=== PATIENT | male | born 1980 | race Native Hawaiian/Other Pacific Islander ===

== ENCOUNTER 2018-09-11 16:31 | Emergency (ER) | payer OTHER ==
[~2018-09-11] VITALS: Ht 185.4 cm; Wt 102.1 kg
[2018-09-11] MEDS ORDERED: CELEXA40 MG PO (17:08)
[2018-09-11] MEDS ORDERED: LISI20TA11 PO (17:08)
[2018-09-11] MEDS ORDERED: ONDA4TAB3 PO (17:08)
[2018-09-11] MEDS ORDERED: HYDR10TA47A PO (17:09)
[2018-09-11] MEDS ORDERED: CLON1TAB18 PO (17:10)
[2018-09-11] MEDS ORDERED: [UNRECOGNIZED DRUG - OTHER] PO (17:12)
[2018-09-11 18:33] LABS: PLATELET COUNT 312 K/uL (142-355)
[2018-09-11 18:48] LABS: POTASSIUM 3.9 mmol/L (3.6-5.2)
[2018-09-11 20:10] VITALS: BP 110/66; TEMP 98
== END 2018-09-11 20:10 | disposition home or self-care (01) ==
LOC: ED 16:31
PROVIDERS: Family Medicine
DX: R42 Dizziness and giddiness (principal); B02.9 Zoster without complications
CPT/HCPCS: 36415; 80053; 81000; 85027; 99283

== ENCOUNTER 2019-02-13 16:38 | Emergency (ER) | payer OTHER ==
[~2019-02-13] VITALS: Ht 185.4 cm; Wt 102.1 kg
[~2019-02-13 16:38] MED LIST: CELEXA40 MG PO; CLON1TAB18 PO; HYDR10TA47A PO; LISI20TA11 PO; ONDA4TAB3 PO; [UNRECOGNIZED DRUG - OTHER] PO
[2019-02-13 21:20] VITALS: BP 135/94; TEMP 98.1
== END 2019-02-13 21:20 | disposition home or self-care (01) ==
LOC: ED 16:38
DX: S20.211A Contusion of right front wall of thorax, initial encounter (principal); S30.1XXA Contusion of abdominal wall, initial encounter; X50.9XXA Other and unspecified overexertion or strenuous movements or postures, initial encounter
CPT/HCPCS: 96372; 99283; J1885

== ENCOUNTER 2020-05-14 08:03 | Emergency (ER) | payer OTHER ==
[~2020-05-14] VITALS: Ht 182.9 cm; Wt 108.9 kg
[2020-05-14 09:07] LABS: POTASSIUM 3.4 mmol/L (3.6-5.2)
[2020-05-14 09:54] LABS: PLATELET COUNT 271 K/uL (142-355)
[2020-05-14 10:10] VITALS: BP 130/87; TEMP 99.5
== END 2020-05-14 10:10 | disposition home or self-care (01) ==
LOC: ED 08:03
PROVIDERS: Hospitalist
DX: J06.9 Acute upper respiratory infection, unspecified (principal); R50.9 Fever, unspecified; Z20.828 Contact with and (suspected) exposure to other viral communicable diseases; F17.210 Nicotine dependence, cigarettes, uncomplicated
CPT/HCPCS: 80048; 85027; 87502; 87635; 87651; 99283; U0003

== ENCOUNTER 2021-02-21 13:48 | Emergency (ER) | payer OTHER ==
[~2021-02-21] VITALS: Ht 182.9 cm; Wt 108.9 kg
[2021-02-21 14:01] VITALS: TEMP 99
[2021-02-21 15:02] VITALS: BP 130/78
== END 2021-02-21 15:04 | disposition home or self-care (01) ==
LOC: ED 13:48
DX: B02.9 Zoster without complications (principal)
CPT/HCPCS: 96372; 99283; J1170; J2405; J2930

== ENCOUNTER 2021-05-28 08:52 | Emergency (ER) | payer OTHER ==
[~2021-05-28] VITALS: Ht 182.9 cm; Wt 108.9 kg
[2021-05-28 10:43] LABS: PLATELET COUNT 274 K/uL (142-355)
[2021-05-28 10:49] LABS: POTASSIUM 4.3 mmol/L (3.6-5.2)
[2021-05-28 11:25] VITALS: TEMP 98.4
[2021-05-28 11:30] VITALS: BP 118/75
== END 2021-05-28 11:34 | disposition home or self-care (01) ==
LOC: ED 08:52
PROVIDERS: Hospitalist
DX: K27.9 Peptic ulcer, site unspecified, unspecified as acute or chronic, without hemorrhage or perforation (principal); K29.60 Other gastritis without bleeding; K64.9 Unspecified hemorrhoids
CPT/HCPCS: 36415; 80053; 80320; 81000; 82150; 82272; 83690; 85027; 96360; 96374; 99284; J2405

== ENCOUNTER 2022-03-16 15:31 | Emergency (ER) | payer OTHER ==
[~2022-03-16] VITALS: Ht 182.9 cm; Wt 108.9 kg
[2022-03-16 15:35] VITALS: BP 125/90; TEMP 98
[2022-03-16 16:28] LABS: PLATELET COUNT 243 K/uL (142-355)
[2022-03-16 16:35] LABS: POTASSIUM 4.2 mmol/L (3.6-5.2)
[2022-03-16 16:40] LABS: PARTIAL THROMBOPLASTIN TIME 25.2 SECONDS (24.5-33.6)
== END 2022-03-16 17:00 | disposition home or self-care (01) ==
LOC: ED 15:31
PROVIDERS: Hospitalist
DX: K64.4 Residual hemorrhoidal skin tags (principal)
CPT/HCPCS: 80048; 85027; 85610; 85730; 99283